=== PATIENT | male | born 1985 | race Caucasian/White ===

== ENCOUNTER 2018-03-06 20:16 | Emergency (ER) | payer MEDICAID ==
[~2018-03-06] VITALS: Ht 180.3 cm; Wt 77.1 kg
[2018-03-06] MEDS ORDERED: SUBOXONE 8 MG-1 EAC3 DISSOLVE (20:27)
[2018-03-06] MEDS ORDERED: MEDROLDOSEPACK PO (21:14)
[2018-03-06] MEDS ORDERED: KEFLEX500 M1 PO (21:14)
[2018-03-06 21:35] VITALS: BP 134/80
== END 2018-03-06 21:36 | disposition home or self-care (01) ==
LOC: M.ERS 20:16
DX: S62.91XA Unspecified fracture of right hand, initial encounter for closed fracture (principal); L40.9 Psoriasis, unspecified; M19.90 Unspecified osteoarthritis, unspecified site; X58.XXXA Exposure to other specified factors, initial encounter; Y93.89 Activity, other specified; Y92.89 Other specified places as the place of occurrence of the external cause; Y99.8 Other external cause status

== ENCOUNTER 2018-08-30 19:29 | Emergency (ER) | payer MEDICAID ==
[~2018-08-30] VITALS: Ht 180.3 cm; Wt 79.4 kg
[~2018-08-30 19:29] MED LIST: KEFLEX500 M1 PO; MEDROLDOSEPACK PO; SUBOXONE 8 MG-1 EAC3 DISSOLVE
[2018-08-30] MEDS ORDERED: KEFLEX500 M1 PO (19:45)
[2018-08-30] MEDS ORDERED: CLINDAMYCIN 1%60 M1 TOP (19:45)
[2018-08-30] MEDS ORDERED: MEDROLDOSEPACK PO (19:45)
[2018-08-30 19:58] VITALS: BP 117/79
== END 2018-08-30 19:58 | disposition home or self-care (01) ==
LOC: M.ERS 19:29
DX: L03.012 Cellulitis of left finger (principal); H92.02 Otalgia, left ear; L40.50 Arthropathic psoriasis, unspecified; F17.200 Nicotine dependence, unspecified, uncomplicated